=== PATIENT | female | born 1990 | race Caucasian/White ===

== ENCOUNTER 2018-10-15 18:41 | Emergency (ER) | payer OTHER ==
[~2018-10-15] VITALS: Ht 154.9 cm; Wt 54.4 kg
[~2018-10-15 18:41] MED LIST: ACETAMINOPHEN-1 EAC1 PO; AUGMENTIN 875875 MG PO; BACTRIM DS TAB1 EACH PO; BIRTH CONTROL; CEPHALEXIN 500500 M3 PO; COMPAZINE10 MG PO; DOXYCYCLINE 10100 MG PO; FLAGYL500 MG PO; FLEXERIL PO; HYDROCODONE-APA1 TA1 PO; IBUPROFEN 400400 M2 PO; IBUPROFEN 800800 M1; IBUPROFEN 800800 MG PO; K-DUR 20 MEQ T20 MEQ PO; MOBIC7.5 MG PO; NOHOMEMEDICATIONS; NORCO 5-325 TA1 EACH PO; ORAJEL10 GM TOP; ORTHO EVRA PAT1 EACH; PENICILLIN V P500 MG PO; PENICILLIN VK500 MG PO; PERCOCET 5-3251 EACH PO; PRENATAL; ROBAXIN500 MG PO; TRAMADOL 50 MG50 MG PO; TRINATE TABLET1 TAB PO; TUMS PO; VICODIN 5-5001 EACH PO; VICOPROFEN 2001 EACH PO; VITAMINC500 PO; VITAMINS; birth control
[2018-10-15 19:47] VITALS: BP 117/90
== END 2018-10-15 19:47 | disposition home or self-care (01) ==
LOC: M.ERS 18:41
DX: Z11.59 Encounter for screening for other viral diseases (principal); Z70.8 Other sex counseling; F17.210 Nicotine dependence, cigarettes, uncomplicated; Z90.89 Acquired absence of other organs